=== PATIENT | male | born 1990 | race Hispanic/Latino ===

== ENCOUNTER 2022-12-13 17:20 | Emergency (ER) | payer OTHER, SELFPAY ==
--- NOTE | 2022-12-13 18:49 | PC.NURSE ---
Pt called twice to triage no answer
== END 2022-12-13 18:49 | disposition left against medical advice (07) ==
LOC: ANHED 19:13
DX: Z53.21 Procedure and treatment not carried out due to patient leaving prior to being seen by health care provider (principal)
CPT/HCPCS: 99199

== ENCOUNTER 2023-02-25 10:01 | Emergency (ER) | payer OTHER, SELFPAY ==
--- NOTE | ~2023-02-25 | XR_ITS ---
EXAMINATION: XR chest 2V DATE: 02/25/2023 10:50 INDICATION: Right shoulder pain TECHNIQUE: PA and lateral views of the chest are obtained. COMPARISON: None available FINDINGS: The lungs are free of acute opacities. No pleural effusion or pneumothorax. The cardiomedia stinal silhouette is normal. The visualized bones and soft tissues are unremarkable. IMPRESSION: 1. No acute cardiopulmonary abnormality. Reviewed, dictated and finalized at location F. RUMENT/CONTROL TECHNICIAN
[2023-02-25 10:23] VITALS: BP 145/82; PULSE 100; RESP 18; O2SAT 100
[2023-02-25 10:27] VITALS: O2SAT 100
--- NOTE | 2023-02-25 10:48 | ED.GENADULT ---
HPI - General Adult General Chief complaint: Unspecified Stated complaint: flu symptoms Time Seen by Provider: 02/25/23 10:21 History of Present Illness HPI narrative: 32-year-old male presented to the emergency department for evaluation of flu-like symptoms that have been ongoing for the past few days. Also complains some right shoulder pain that radiates down his right arm. 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 Patient denies any chest pain. Related Data Allergies Allergy/AdvReac Type Severity Reaction Status Date / Time No Known Allergies Allergy Verified 02/25/23 10:03 Review of Systems Review of Systems: All systems reviewed & are unremarkable except as noted in HPI and below Exam Narrative: APPEARANCE: Well appearing, no pain, no distress, well-nourished. HEAD: normocephalic, atraumatic. EYES: PERRLA/EOMI, conjunctivae clear. NOSE: Normal no drainage EARS:TMS clear with good light reflex. THROAT: Pharynx clear, no exudate. NECK: Supple. No adenopathy, no masses. RESPIRATORY: Airway patent, respirations nonlabored. Clear to auscultation bilaterally, no rales, rhonchi, wheezing. CARDIOVASCULAR: Regular rate and rhythm without murmurs rubs or gallops. ABDOMINAL: Soft, nontender, nondistended, normal bowel sounds MUSCULOSKELETAL: Posterior right-sided periscapular muscular tenderness to palpation. NEURO: Alert. Cranial nerves II through XII intact. Good gait. Good coordination SKIN: Warm, dry. Normal Color Course Course Emergency Course: 32-year-old male presents emerged department for evaluation of flu-like symptoms. Patient is also complaining of some right shoulder pain that has been going on for the last few weeks. Chest x-ray shows no acute cardiopulmonary abnormality. Patient's rectal pain is very muscular and reproducible with range of motion. Patient denies any chest pain or shortness of breath. Suspect musculoskeletal etiology low concern for pulmonary embolism. Patient did test positive for COVID. Patient and family written results of the workup. Vital Signs Vital signs: Vital Signs Pulse Rate 100 02/25/23 10:23 Respiratory Rate 18 02/25/23 10:23 Blood Pressure 145/82 H 02/25/23 10:23 Pulse Oximetry 100 02/25/23 10:23 Oxygen Delivery Room Air 02/25/23 10:23 Pulse Rate 100 02/25/23 10:23 Respiratory Rate 18 02/25/23 10:23 Blood Pressure 145/82 H 02/25/23 10:23 Pulse Oximetry 100 02/25/23 10:27 Oxygen Delivery Room Air 02/25/23 10:27 Medical Decision Making Differential Diagnosis Differential Diagnosis: Shoulder strain, muscular injury, influenza, RSV, COVID, pneumonia, pulmonary embolism Vital Signs Vital Signs: Vital Signs Pulse Rate 100 02/25/23 10:23 Respiratory Rate 18 02/25/23 10:23 Blood Pressure 145/82 H 02/25/23 10:23 Pulse Oximetry 100 02/25/23 10:23 Oxygen Delivery Room Air 02/25/23 10:23 Pulse Rate 100 02/25/23 10:23 Respiratory Rate 18 02/25/23 10:23 Blood Pressure 145/82 H 02/25/23 10:23 Pulse Oximetry 100 02/25/23 10:27 Oxygen Delivery Room Air 02/25/23 10:27 Lab Data Lab results reviewed: Yes I reviewed the patient's lab results. Labs: Lab Results 02/25/23 Range/Units 10:45 Influenza A (RT-PCR) Negative (Negative) Influenza B (RT-PCR) Negative (Negative) RSV (RT-PCR) Negative (Negative) SARS-CoV-2 RNA (RT-PCR) Positive A (Negative) Imaging Data Radiologist's impression: IMPRESSION: 1. No acute cardiopulmonary abnormality. Discharge Plan Discharge Clinical Impression: COVID, Right shoulder strain Patient Disposition: Home, Self-Care Condition: Stable Instructions: Antibiotic Form, Shoulder Pain (ED), COVID-19 (Coronavirus Disease 2019) (ED) Additional Instructions: Tylenol and ibuprofen for pain control and for fever control. COVID isolation as directed. Have close follow-up with he
[2023-02-25 11:27] LABS: Influenza A QL RT-PCR Negative (Negative); Influenza B QL RT-PCR Negative (Negative); RSV RNA, RT-PCR Negative (Negative); SARS-CoV-2 RNA PCR Positive (Negative)
== END 2023-02-25 12:03 | disposition home or self-care (01) ==
PROVIDERS: Emergency Provider Emergency Medicine
DX: U07.1 COVID-19 (principal); S46.911A Strain of unspecified muscle, fascia and tendon at shoulder and upper arm level, right arm, initial encounter; X50.0XXA Overexertion from strenuous movement or load, initial encounter
CPT/HCPCS: 71046; 87637; 99283

== ENCOUNTER 2024-05-15 09:29 | Outpatient (CLI) | payer OTHER, SELFPAY ==
--- NOTE | ~2024-05-15 | XR_ITS ---
EXAMINATION: XR abdomen/kub 1V DATE: 05/15/2024 09:45 INDICATION: Diarrhea, unspecified. TECHNIQUE: A supine view of the abdomen on 2 radiographs was obtained. COMPARISON: None. FINDINGS: There are no dilated loops of bowel. There is a moderate volume of stool in the colon. Calc ifications in the pelvis are likely phleboliths. IMPRESSION: 1. Normal bowel gas pattern. Reviewed, dictated and finalized at location A. O GAMES STORYWRITER
--- OUTSIDE RECORDS SUMMARY | 2024-05-15 10:23 | XMS_ITS | Clinical Summary ---
Author Organization [facility] Address [address] [place] [address] Phone Care Team Providers Care Dude Wrangler Name Role Phone Provider, None Primary Care Provider Unavailabl e Allergies No known active allergies Medications neomycin-polymy lisbet-dexamethaso ne (MAXITROL) [id number] 1 Drop in left eye 4 times daily. 5 mL 12/13/2022 Active methylPREDNISol one (MEDROL DOSPACK) 4 MG Tablet Therapy Pack See product package insert for dosing schedule 21 Tablet 12/13/2022 Active Encounters Date Type Department Care Team Description 04/08/2024 Nurse Triage [facility] [address] [place] [address] Provider, None Dizziness from Last 3 Months Social History Tobacco Use Types Packs/Day Years Used Date Smoking Tobacco: Never Assessed Sex and Gender Information Value Date Recorded Sex Assigned at Not on file Legal Sex Male 6:00 PM CDT Gender Identity Not on file Sexual Orientation Not on file Last Filed Vital Signs Vital Sign Reading Time Taken Comments Blood Pressure 135/82 12/13/2022 6:41 PM CDT Pulse 80 12/13/2022 6:41 PM CDT Simultaneous filing. User may not have seen previous data. Temperature 36.3 C (97.4 F) 12/13/2022 6:41 PM CDT Respiratory Rate 20 12/13/2022 6:41 PM CDT Simultaneous filing. User may not have seen previous data. Oxygen Saturation 98% 12/13/2022 6:4 1 PM CDT Simultaneous filing. User may not have seen previous data. Inhaled Oxygen Concentration - - Weight 74.4 kg (164 lb) 12/13/2022 6:41 PM CDT Height 180.3 cm (5' 11 ) 12/13/2022 6:4 1 PM CDT Body Mass Index 22.87 12/13/2022 6:41 PM CDT Plan of Treatment Not on file [place] [address] MEDICAID [employer] Care Teams Dude Wrangler Relationship Specialty Start Date End Date Provider, None [place] PCP - General 12/13/22
--- OUTSIDE RECORDS SUMMARY | 2024-05-15 10:23 | XMS_ITS | Referral Summary ---
Author Organization [facility] Address [address] [place] [address] Care Team Providers Care Environmental Assistant Name Role Phone No, Physician Primary Care Provider [phone] Encounters Date Type Department Care Team Description 04/08/2024 6:53 PM CLINICAL CARE COORDINATOR - 04/09/2024 12:02 AM CLINICAL CARE COORDINATOR Emergency [facility] Emergency Department [address] [place] [address] Mariana Massey MD [place], Lyndon Rubin MD Vertigo (Primary Dx); Nausea and vomiting, unspecified vomiting type; Right otitis media, unspecified otitis media type Discharge Disposition: Discharge to home or self care from Last 3 Months Allergies No known active allergies Medications meclizine (ANTIVERT) 25 mg tablet Take 1 tablet (25 mg total) by mouth 3 (three) times a day as needed for dizziness 30 tablet 5 Active LORazepam (Ativan) 1 mg tabletIndicatio ns:Akathisia,In somnia,anxiety, vertigo Take 1 tablet (1 mg total) by mouth 3 (three) times a day as needed for anxiety (vertigo and nausea) 15 tablet 5 Active sulfamethoxazol e-trimethoprim (BACTRIM DS) 800-160 mg per tablet Take 1 tablet by mouth 2 (two) times a day for 7 days smx-tmp DS (BACTRIM) 800-160 mg tabs 14 tablet 5 04/15/19 25 Social History Tobacco Use Types Packs/Day Years Used Date Smoking Tobacco: Never Assessed Personal Safety Answer Date Recorded Have you ever been in or are you currently in a harmful physical or emotional relationship or is someone making you feel afraid or unsafe? Denies 04/08/2024 Sex and Gender Information Value Date Recorded Sex Assigned at Not on file Legal Sex Male 6:40 PM CLINICAL CARE COORDINATOR Gender Identity Not on file Sexual Orientation Not on file Last Filed Vital Signs Vital Sign Reading Time Taken Comments Blood Pressure 114/72 04/08/2024 7:30 PM CLINICAL CARE COORDINATOR Pulse 66 04/08/2024 7:30 PM CLINICAL CARE COORDINATOR Temperature 36.9 C (98.4 F) 04/08/2024 6:52 PM CLINICAL CARE COORDINATOR Respiratory Rate 18 04/08/2024 6:52 PM CLINICAL CARE COORDINATOR Oxygen Saturation 97% 04/08/2024 7:30 PM CLINICAL CARE COORDINATOR Inhaled Oxygen Concentration - - Weight 86.2 kg (190 lb) 04/08/2024 6:52 PM CLINICAL CARE COORDINATOR Height 180.3 cm (5' 11 ) 04/08/2024 6:52 PM CLINICAL CARE COORDINATOR Body Mass Index 26.5 04/08/2024 6:52 PM CLINICAL CARE COORDINATOR Plan of Treatment Not on file Procedures Procedure Name Priority Date/Time Associated Diagnosis Comments CT HEAD WO CONTRAST ED 04/08/2024 1 1:30 PM CLINICAL CARE COORDINATOR XR KUB ED 04/08/2024 9:02 PM CLINICAL CARE COORDINATOR EGFR STAT 04/08/2024 7:26 PM CLINICAL CARE COORDINATOR DIFFERENTIAL AUTO STAT 04/08/2024 7:2 6 PM CLINICAL CARE COORDINATOR CRP (ACUTE PHASE) STAT 04/08/2024 7:2 6 PM CLINICAL CARE COORDINATOR LIPASE STAT 04/08/2024 7:26 PM CLINICAL CARE COORDINATOR COMPREHENSIVE METABOLIC PANEL STAT 04/08/2024 7:26 PM CLINICAL CARE COORDINATOR CBC WITH AUTO DIFFERENTIAL STAT 04/08/2024 7:26 PM CLINICAL CARE COORDINATOR from Last 3 Months Results * CT Head WO Contrast (04/08/2024 11:30 PM CLINICAL CARE COORDINATOR) Anatomical Region Laterality Modality Head and Neck N/A Computed Tomogra phy 04/08/2024 11:3 4 PM CLINICAL CARE COORDINATOR Narrative 04/08/2024 11:37 PM CLINICAL CARE COORDINATOR EXAM DESCRIPTION: CT HEAD WO CONTRAST REASON FOR STUDY: Headache, no red flags Pt ambulatory to triage with c/o dizziness that started 2 days ago and vomiting that started today. No pertinent medical hx to explain symptoms No hx of stroke No hx of fx No surgery TECHNIQUE: Axial images acquired through the brain without intravenous contrast. Images stored on PACS. Automated exposure control was used as a dose optimization technique for this examination. COMPARISON: None FINDINGS: BRAIN: No hemorrhage, edema or mass effect. No recent infarct. Normal white matter. EXTRA-AXIAL SPACES: No fluid collections. No masses. CALVARIUM: No fracture. SINUSES/MASTOIDS: No fluid or mucosal thickening. ORBITS: No significant abnormality. OTHER: No other significant abnormality. IMPRESSION: No acute intracranial findings. THIS IS AN ELECTRONICALLY VERIFIED FINAL REPORT 04/08/2024 11:37 PM - Electronically signed by Jean-Claude Nath M.D. KH: SAMANTHA Report ID: [id number] Reading Location: [id number] Procedure Note Jean-Claude Nath MD - 04/08/2024 EXAM DESCRIPTION: CT HEAD WO CONTRAST REASON FOR STUDY: Headache, no red flags Pt ambulatory to triage with c/o dizziness that started 2 days ago and vomiting that started today. No pertinent medical hx to explain symptomsNo hx of stroke No hx of fx No surgery TECHNIQUE: Axial images acquired through the brain without intravenous contrast. Images stored on PACS. Automated exposure control was used asa dose optimization technique for this examination. COMPARISON: None FINDINGS: BRAIN: No hemorrhage, edema or mass effect. No recent infarct. Normal white matter. EXTRA-AXIAL SPACES: No fluid collections. No masses. CALVARIUM: No fracture. SINUSES/MASTOIDS: No fluid or mucosal thickening. ORBITS: No significant abnormality. OTHER: No other significant abnormality. IMPRESSION: No acute intracranial findings. THIS IS AN ELECTRONICALLY VERIFIED FINAL REPORT 04/08/2024 11:37 PM - Electronically signed by Jean-Claude Nath M.D. KH: SAMANTHA Report ID: [id number] Reading Location: [id number] Lyndon Munoz MD IMG CT PROCEDURES Final Res ult * XR Kub (Abd 1 View) (04/08/2024 9:02 PM CLINICAL CARE COORDINATOR) Anatomical Region Laterality Modality Body, Abdomen N/A Computed Radiogr aphy 04/08/2024 9:16 PM CLINICAL CARE COORDINATOR Narrative 04/08/2024 9:17 PM CLINICAL CARE COORDINATOR EXAM DESCRIPTION: XR KUB REASON FOR STUDY: Abd pain, unspecified Acute onset of Diarrhea about 2 Days ago followed by a mild left earache and now he has intense vertigo dizziness on standing. Pt says he has Vomiting as well. It is much improved with his eyes closed or standing still. He describes his purely a horizontal rotational dizziness and fine as long as he is still. No Hx of Abdomen Surgery. TECHNIQUE: KUB COMPARISON: None FINDINGS: BOWEL: Nonobstructive gas pattern. OTHER SOFT TISSUES: Unremarkable. BONES: Unremarkable. IMPRESSION: No bowel obstruction or other acute abnormality identified. THIS IS AN ELECTRONICALLY VERIFIED FINAL REPORT 04/08/2024 9:17 PM - Electronically signed by Markos Sweet M.D. AR: LAURENCE Report ID: [id number] Reading Location: [id number] Procedure Note Markos Sweet MD - 04/08/2024 EXAM DESCRIPTION: XR KUB REASON FOR STUDY: Abd pain, unspecified Acute onset of Diarrhea about 2 Days ago followed by a mild left earacheand now he has intense vertigo dizziness on standing. Pt says he has Vomitingas well. It is much improved with his eyes closed or standing still. He describes his purely a horizontal rotational dizziness and fine as long felix is still. No Hx of Abdomen Surgery. TECHNIQUE: KUB COMPARISON: None FINDINGS: BOWEL: Nonobstructive gas pattern. OTHER SOFT TISSUES: Unremarkable. BONES: Unremarkable. IMPRESSION: No bowel obstruction or other acute abnormality identified. THIS IS AN ELECTRONICALLY VERIFIED FINAL REPORT 04/08/2024 9:17 PM - Electronically signed by Markos Sweet M.D. AR: LAURENCE Report ID: [id number] Reading Location: [place] [id number] Lyndon Munoz MD IMG XR PROCEDURES Final Res ult * eGFR (04/08/2024 7:26 PM CLINICAL CARE COORDINATOR) eGFR >90 >=60 mL/min/1. 73 m2 Comment: Interpretive Data Reference Interval Normal >/= 90 mL/min/1.73m2 Mildly decreased* 60 - 89 mL/min/1.73m2 Mildly to moderately decreased 45 - 59 mL/min/1.73m2 Moderately to severely decreased 30 - 44 mL/min/1.73m2 Severely decreased 15 - 29 mL/min/1.73m2 Kidney Failure < 15 mL/min/1.73m2 *Relative to young adult level Estimated glomerular filtration rate is determined by the 2020 CKD-EPI equation recommended by the National Kidney Foundation (A Unifying Approach to GFR Estimation: Recommendations of the NKF-ASK Task Force on Reassessing the Inclusion of Race in Diagnosing Kidney Disease, JASN 2020). The CKD-EPI equation should not be used for patients with unstable renal function and has not been validated in children and those over 70. Current interpretive data was last reviewed 2021. Blood 04/08/2024 7:26 PM CLINICAL CARE COORDINATOR 04/08/2024 7:29 PM CLINICAL CARE COORDINATOR Lyndon Munoz MD LAB BLOOD ORDERABLES Final Result [facility] [place]) 1 [facility] Department [place] [address] * (ABNORMAL) Differential, auto (04/08/2024 7:26 PM CLINICAL CARE COORDINATOR) Neutrophil abs 7.4(H) 1.5 - 6.5 K/cumm Imm gran abs 0.0 0.0 - 0.1 K/cumm [facility] ([place]) Lymphocyte abs 1.8 0.8 - 3.3 K/cumm [facility] ([facility]) Monocyte abs 0.6 0.2 - 0.8 K/cumm [facility] ([place]) Eosinophil abs 0.1 0.0 - 0.5 K/cumm [facility] ([place]) Basophil abs 0.0 0.0 - 0.1 K/cumm [facility] ([place]) Neutrophil pct 74.0 % [facility] ([facility]) Comment: Interpretive Data Percent cell count reference ranges are not reported, since discordance with absolute values may lead to misinterpretation of CBC data. Current Interpretive Data was last revised on 2017. Imm gran pct 0.2 % [facility] ([place]) Comment: Interpretive Data Percent cell count reference ranges are not reported, since discordance with absolute values may lead to misinterpretation of CBC data. Current Interpretive Data was last revised on 2017. Lymphocyte pct 18.3 % [facility] ([place]) Comment: Interpretive Data Percent cell count reference ranges are not reported, since discordance with absolute values may lead to misinterpretation of CBC data. Current Interpretive Data was last revised on 2017. Monocyte pct 6.3 % [facility]) Comment: Interpretive Data Percent cell count reference ranges are not reported, since discordance with absolute values may lead to misinterpretation of CBC data. Current Interpretive Data was last revised on 2017. Eosinophil pct 0.8 % [facility] ([place]) Comment: Interpretive Data Percent cell count reference ranges are not reported, since discordance with absolute values may lead to misinterpretation of CBC data. Current Interpretive Data was last revised on 2017. Basophil pct 0.4 % [facility] ([facility]) Comment: Interpretive Data Percent cell count reference ranges are not reported, since discordance with absolute values may lead to misinterpretation of CBC data. Current Interpretive Data was last revised on 2017. Blood 04/08/2024 7:26 PM CLINICAL CARE COORDINATOR 04/08/2024 7:29 PM CLINICAL CARE COORDINATOR Lyndon Munoz MD LAB BLOOD ORDERABLES Final Result [facility] ([place] 1 [facility] [place] [address] * (ABNORMAL) CBC with auto differential (04/08/2024 7:26 PM CLINICAL CARE COORDINATOR) WBC 10.0(H) 3.8 - 9.9 K/cumm Hgb 15.8 13.0 - 17.5 g/dL [facility] ([place]) Hct 45.7 38.9 - 50.3 % [facility] ([place]) Plt 244 150 - 400 K/cumm [facility] ([place]) MPV 10.3 9.1 - 12.3 fL [facility]) RBC 4.96 4.30 - 5.80 M/cumm [facility] ([place]) MCV 92.1 81.3 - 96.4 fL [facility]) MCH 31.9 27.1 - 33.3 pg [facility]) MCHC 34.6 32.3 - 35.7 g/dL [facility] ([place]) RDW CV 11.9 11.1 - 14.9 % [facility]) RDW SD 40.6 35.7 - 48.1 fL [facility] ([place]) NRBC abs 0.00 0.00 - 0.01 K/cumm [facility] ([facility]) Blood 04/08/2024 7:26 PM CLINICAL CARE COORDINATOR 04/08/2024 7:29 PM CLINICAL CARE COORDINATOR Lyndon Munoz MD LAB BLOOD ORDERABLES Final Result [facility] ([place]) 1 [facility] [employer] [place] [address] * CRP (acute phase) (04/08/2024 7:26 PM CLINICAL CARE COORDINATOR) CRP <3.0 <=10.0 mg/L Blood 04/08/2024 7:26 PM CLINICAL CARE COORDINATOR 04/08/2024 7:29 PM CLINICAL CARE COORDINATOR Lyndon Munoz MD LAB BLOOD ORDERABLES Final Result [facility] ([place]) [address] [place] [address] * Lipase (04/08/2024 7:26 PM CLINICAL CARE COORDINATOR) Lipase 13 10 - 99 Units/L Blood 04/08/2024 7:26 PM CLINICAL CARE COORDINATOR 04/08/2024 7:29 PM CLINICAL CARE COORDINATOR Lyndon Munoz MD LAB BLOOD ORDERABLES Final Result Performing Organization Address [facility] de Phone Number [facility] ([place]) [address] [place] [address] * Comprehensive metabolic panel (04/08/2024 7:26 PM CLINICAL CARE COORDINATOR) Sodium 138 135 - 145 mmol/L Potassium, pl 4.3 3.3 - 4.9 mmol/L [facility] ([place]) Chloride 101 97 - 110 mmol/L [facility]) CO2 27 22 - 32 mmol/L [facility]) Anion gap 10 2 - 15 mmol/L [facility] ([place]) BUN 10 6 - 25 mg/dL [facility] ([place]) Creatinine 0.96 0.80 - 1.30 mg/dL [facility]) Glucose 97 70 - 199 mg/dL [facility] ([place]) Comment: Interpretive Data Fasting glucose >/= 126 mg/dl is diagnostic for diabetes. Fasting is defined as no caloric intake for at least 8 hours. Fasting glucose between 100 mg/dl to 125 mg/dl is diagnostic of prediabetes. In a patient with classic symptoms of hyperglycemia or hyperglycemic crisis, a random glucose >/= 200 mg/dl is diagnostic for diabetes. In the absence of unequivocal hyperglycemia, results should be confirmed by repeat testing. The classification and Diagnosis of Diabetes Diabetes Care 2021; 46: S19-S40. Current interpretive data was last revised 2022. Calcium 9.5 8.5 - 10.3 mg/dL [facility] ([place]) Bilirubin, total 0.7 0.1 - 1.2 mg/dL [facility] ([place]) Protein, pl 7.8 6.5 - 8.5 g/dL [facility] ([place]) Albumin 4.5 3.5 - 5.0 g/dL [facility] ([place]) Alk phos 89 40 - 130 Units/L [facility] ([place]) ALT 16 7 - 55 Units/L [facility] ([place]) AST 20 10 - 50 Units/L [facility] ([place]) Blood 04/08/2024 7:26 PM CLINICAL CARE COORDINATOR 04/08/2024 7:29 PM CLINICAL CARE COORDINATOR Lyndon Munoz MD LAB BLOOD ORDERABLES Final Result [facility] ([place]) 1 [facility] [place] [address] from Last [address] [place] [address] [employer] Care Teams Environmental Assistant Relationship Specialty Start Date End Date No, Physician PCP - General 04/08/24
--- OUTSIDE RECORDS SUMMARY | 2024-05-15 10:23 | XMS_ITS | Clinical Summary ---
Author Organization [facility] Address [address] [place] [address] Care Team Providers Care Lumber Buyer Name Role Phone No, Physician Primary Care Provider [phone] Allergies No known active allergies Medications meclizine [...] mg tabs 14 tablet 5 04/15/19 25 Encounters Date Type Department Care Team Description 04/08/2024 6:53 PM ALGOLOGY TEACHER - 04/09/2024 12:02 AM ALGOLOGY TEACHER Emergency [facility] Emergency Department [address] [place] [address] Mariana Massey MD Burnside, David W., MD Vertigo (Primary Dx); Nausea and vomiting, unspecified vomiting type; Right otitis media, unspecified otitis media type Discharge Disposition: Discharge to home or self care from Last 3 Months Social History Tobacco [...] on file Legal Sex Male 6:40 PM ALGOLOGY TEACHER Gender Identity Not on file Sexual Orientation Not on file Last Filed Vital Signs Vital Sign Reading Time Taken Comments Blood Pressure 114/72 04/08/2024 7:30 PM ALGOLOGY TEACHER Pulse 66 04/08/2024 7:30 PM ALGOLOGY TEACHER Temperature 36.9 C (98.4 F) 04/08/2024 6:52 PM ALGOLOGY TEACHER Respiratory Rate 18 04/08/2024 6:52 PM ALGOLOGY TEACHER Oxygen Saturation 97% 04/08/2024 7:30 PM ALGOLOGY TEACHER Inhaled Oxygen Concentration - - Weight 86.2 kg (190 lb) 04/08/2024 6:52 PM ALGOLOGY TEACHER Height 180.3 cm (5' 11 ) 04/08/2024 6:52 PM ALGOLOGY TEACHER Body Mass Index 26.5 04/08/2024 6:52 PM ALGOLOGY TEACHER Plan of Treatment Health Maintenance Due Date Last Done Comments Depression Screening 1990 Hepatitis C Screening 1990 DTaP/Tdap/Td Vaccine (1 - Tdap) 2001 Varicella Vaccines (1 of 2 - 13+ 2-dose series) 2003 Hepatitis B Screening 2008 Regular Well Visit/Exam 18-64 2008 Influenza Vaccine (#1) 2023 HPV Vaccines Aged Out No longer eligi ble based on patient's age to complete this topic Pneumococcal vaccine <65 Aged Out No longer eligible based on patient's age to complete this topic Procedures Procedure Name Priority Date/Time Associated Diagnosis Comments CT HEAD WO CONTRAST ED 04/08/2024 1 1:30 PM ALGOLOGY TEACHER XR KUB ED 04/08/2024 9:02 PM ALGOLOGY TEACHER EGFR STAT 04/08/2024 7:26 PM ALGOLOGY TEACHER DIFFERENTIAL AUTO STAT 04/08/2024 7:2 6 PM ALGOLOGY TEACHER CRP (ACUTE PHASE) STAT 04/08/2024 7:2 6 PM ALGOLOGY TEACHER LIPASE STAT 04/08/2024 7:26 PM ALGOLOGY TEACHER COMPREHENSIVE METABOLIC PANEL STAT 04/08/2024 7:26 PM ALGOLOGY TEACHER CBC WITH AUTO DIFFERENTIAL STAT 04/08/2024 7:26 PM ALGOLOGY TEACHER from Last 3 Months Results * CT Head WO Contrast (04/08/2024 11:30 PM ALGOLOGY TEACHER) Anatomical Region Laterality Modality Head and Neck N/A Computed Tomogra phy 04/08/2024 11:3 4 PM ALGOLOGY TEACHER Narrative 04/08/2024 11:37 PM ALGOLOGY TEACHER EXAM DESCRIPTION: CT HEAD WO CONTRAST REASON [...] Jean-Claude Nath M.D. KH: SAMANTHA Report ID: [id number] Reading Location: [id number] Procedure Note Jean-Claude Nath MD - 04/08/2024 [...] Jean-Claude Nath M.D. KH: SAMANTHA Report ID: [id number] Reading Location: [id number] Lyndon Munoz MD IMG CT PROCEDURES Final Res ult * XR Kub (Abd 1 View) (04/08/2024 9:02 PM ALGOLOGY TEACHER) Anatomical Region Laterality Modality Body, Abdomen N/A Computed Radiogr aphy 04/08/2024 9:16 PM ALGOLOGY TEACHER Narrative 04/08/2024 9:17 PM ALGOLOGY TEACHER EXAM DESCRIPTION: XR KUB REASON FOR STUDY: [...] Markos Sweet M.D. AR: LAURENCE Report ID: [id number] Reading Location: [id number] Procedure Note Markos Sweet MD - 04/08/2024 [...] Markos Sweet M.D. AR: LAURENCE Report ID: [id number] Reading Location: [id number] Lyndon Munoz MD IMG XR PROCEDURES Final Res ult * eGFR (04/08/2024 7:26 PM ALGOLOGY TEACHER) eGFR >90 >=60 mL/min/1. 73 m2 Comment: [...] last reviewed 2021. Blood 04/08/2024 7:26 PM ALGOLOGY TEACHER 04/08/2024 7:29 PM ALGOLOGY TEACHER us Lyndon Munoz MD LAB BLOOD ORDERABLES Final Result [facility] ([place]) 1 [facility] Department [place] [address] * (ABNORMAL) Differential, auto (04/08/2024 7:26 PM ALGOLOGY TEACHER) Neutrophil abs 7.4(H) 1.5 - 6.5 K/cumm Imm gran abs 0.0 0.0 - 0.1 K/cumm [facility] ([place]) Lymphocyte abs 1.8 0.8 - 3.3 K/cumm [facility] ([place]) Monocyte abs 0.6 0.2 - 0.8 K/cumm [facility] ([place]) Eosinophil abs 0.1 0.0 - 0.5 K/cumm [facility] ([place]) Basophil abs 0.0 0.0 - 0.1 K/cumm [facility] ([place]) Neutrophil pct 74.0 % [facility] ([place]) Comment: Interpretive Data Percent cell count reference [...] revised on 2017. Blood 04/08/2024 7:26 PM ALGOLOGY TEACHER 04/08/2024 7:29 PM ALGOLOGY TEACHER us Lyndon Munoz MD LAB BLOOD ORDERABLES Final Result [facility] ([place]) 1 [facility] Department [place] [address] * (ABNORMAL) CBC with auto differential (04/08/2024 7:26 PM ALGOLOGY TEACHER) WBC 10.0(H) 3.8 - 9.9 K/cumm Hgb [...] [facility] ([place]) Blood 04/08/2024 7:26 PM ALGOLOGY TEACHER 04/08/2024 7:29 PM ALGOLOGY TEACHER Lyndon Munoz MD LAB BLOOD ORDERABLES Final Result [facility] ([place]) 1 [facility] [place] [address] * CRP (acute phase) (04/08/2024 7:26 PM ALGOLOGY TEACHER) CRP <3.0 <=10.0 mg/L Blood 04/08/2024 7:26 PM ALGOLOGY TEACHER 04/08/2024 7:29 PM ALGOLOGY TEACHER Lyndon Munoz MD LAB BLOOD ORDERABLES Final Result Performing Organization Address [facility] Co de Phone Number [facility] ([place]) [address] [place] [address] * Lipase (04/08/2024 7:26 PM ALGOLOGY TEACHER) Pathologist [facility] Lipase 13 10 - 99 Units/L Blood 04/08/2024 7:26 PM ALGOLOGY TEACHER 04/08/2024 7:29 PM ALGOLOGY TEACHER Lyndon Munoz MD LAB BLOOD ORDERABLES Final Result Performing Organization Address [facility] Co de Phone Number [facility] ([place]) [address] [place] [address] * Comprehensive metabolic panel (04/08/2024 7:26 PM ALGOLOGY TEACHER) Sodium 138 135 - 145 mmol/L Potassium, pl 4.3 3.3 - 4.9 mmol/L [facility] ([place]) Chloride 101 97 - 110 mmol/L [facility] ([place]) CO2 27 22 - 32 mmol/L [facility] ([place]) Anion gap 10 2 - 15 mmol/L [facility] ([place]) BUN 10 6 - 25 mg/dL [facility] ([place]) Creatinine 0.96 0.80 - 1.30 mg/dL [facility] ([place]) Glucose 97 70 - 199 mg/dL [facility] ([place]) Comment: Interpretive Data Fasting glucose >/= [...] classification and Diagnosis of Diabetes Diabetes Care 202; 46: S19-S40. Current interpretive data was last [...] [facility] ([place]) Blood 04/08/2024 7:26 PM ALGOLOGY TEACHER 04/08/2024 7:29 PM ALGOLOGY TEACHER us Lyndon Munoz MD LAB BLOOD ORDERABLES Final Result [facility] ([place]) 1 [facility] [place] [address] from Last [address] [place] [address] MARGI Care Teams Lumber Buyer Relationship Specialty Start Date End Date No, Physician PCP - General 04/08/24
== END 2024-05-15 09:30 | disposition home or self-care (01) ==
LOC: ANHBWCIMG 09:32
PROVIDERS: PCP Nurse Practitioner Adult Health; Visit Provider Nurse Practitioner Adult Health
DX: R19.7 Diarrhea, unspecified (principal)
CPT/HCPCS: 74018

== ENCOUNTER 2024-05-27 14:21 | Emergency (ER) | payer OTHER, SELFPAY ==
--- NOTE | ~2024-05-27 | CT_ITS ---
History: Right-sided neck pain with digital paresthesias PROCEDURE: CT cervical spine without intravenous contrast. COMPARISON: None TECHNIQUE: Multiple contiguous axial images of the cervical spine were performed without the administration of i ntravenous contrast. DLP: 464 mGy-cm FINDINGS: Straightening and slight reversal of the normal curvature of the cervical spine is identified, likely muscular in origin. No acute fractures are present. The bilateral lung apices are unremarkable. No soft tissue abnormality is present. The airway is patent. Nonpathologically enlarged lymph nodes within the bilateral cervical chains and lower neck, a nonspec ific finding. Impression: Straightening and slight reversal of the normal curvature of the cervical spine, likely muscular in o rigin. No acute fracture. Reviewed, dictated and finalized at location A. DOM OF INFORMATION OFFICER Impression: Straightening and slight reversal of the normal curvature of the cervical spine , likely muscular in origin. No acute fracture.
--- OUTSIDE RECORDS SUMMARY | 2024-05-27 14:23 | XMS_ITS | Referral Summary ---
Author Organization [facility] Address [address] [place] [address] Care Team Providers Care Patient Services Technician Name Role Phone No, Physician Primary Care Provider [phone] Encounters Date Type Department Care Team Description 04/08/2024 6:53 PM REINSURANCE CLERK - 04/09/2024 12:02 AM [facility] Emergency [facility] Emergency Department [address] [place] [address] Mariana Massey MD Burnside, Lyndon Rubin MD [...] day as needed for dizziness 30 tablet Active LORazepam (Ativan) 1 mg tabletIndicatio ns:Akathisia,In somnia,anxiety, vertigo Take 1 tablet (1 mg total) by mouth 3 (three) times a day as needed for anxiety (vertigo and nausea) 15 tablet 5 Active Social History Tobacco Use Types Packs/Day Years Used Date Smoking Tobacco: Never Assessed Personal Safety Answer Date Recorded Have you ever been in or are you currently in a harmful physical or emotional relationship or is someone making you feel afraid or unsafe? Denies 04/08/2024 Sex and Gender Information Value Date Recorded Sex Assigned at Not on file Legal Sex Male 6:40 PM REINSURANCE CLERK Gender Identity Not on file Sexual Orientation Not on file Last Filed Vital Signs Vital Sign Reading Time Taken Comments Blood Pressure 114/72 04/08/2024 7:30 PM REINSURANCE CLERK Pulse 66 04/08/2024 7:30 PM REINSURANCE CLERK Temperature 36.9 C (98.4 F) 04/08/2024 6:52 PM REINSURANCE CLERK Respiratory Rate 18 04/08/2024 6:52 PM REINSURANCE CLERK Oxygen Saturation 97% 04/08/2024 7:30 PM REINSURANCE CLERK Inhaled Oxygen Concentration - - Weight 86.2 kg (190 lb) 04/08/2024 6:52 PM REINSURANCE CLERK Height 180.3 cm (5' 11 ) 04/08/2024 6:52 PM REINSURANCE CLERK Body Mass Index 26.5 04/08/2024 6:52 PM REINSURANCE CLERK Plan of Treatment Not on file Procedures Procedure Name Priority Date/Time Associated Diagnosis Comments CT HEAD WO CONTRAST ED 04/08/2024 1 1:30 PM REINSURANCE CLERK XR KUB ED 04/08/2024 9:02 PM REINSURANCE CLERK EGFR STAT 04/08/2024 7:26 PM REINSURANCE CLERK DIFFERENTIAL AUTO STAT 04/08/2024 7:2 6 PM REINSURANCE CLERK CRP (ACUTE PHASE) STAT 04/08/2024 7:2 6 PM REINSURANCE CLERK LIPASE STAT 04/08/2024 7:26 PM REINSURANCE CLERK COMPREHENSIVE METABOLIC PANEL STAT 04/08/2024 7:26 PM REINSURANCE CLERK CBC WITH AUTO DIFFERENTIAL STAT 04/08/2024 7:26 PM REINSURANCE CLERK from Last 3 Months Results * CT Head WO Contrast (04/08/2024 11:30 PM REINSURANCE CLERK) Anatomical Region Laterality Modality Head and Neck N/A Computed Tomogra phy 04/08/2024 11:3 4 PM REINSURANCE CLERK Narrative 04/08/2024 11:37 PM REINSURANCE CLERK EXAM DESCRIPTION: CT HEAD WO CONTRAST REASON [...] 11:37 PM - Electronically signed by Jean-Claude SINGH: SAMANTHA Report ID: [id number] Reading Location: [id number] Procedure Note Jean-Claude Nath MD - 04/08/2024 [...] 11:37 PM - Electronically signed by Jean-Claude SINGH: SAMANTHA Report ID: [id number] Reading Location: [id number] us Lyndon Munoz MD IMG CT PROCEDURES Final Res ult * XR Kub (Abd 1 View) (04/08/2024 9:02 PM REINSURANCE CLERK) Anatomical Region Laterality Modality Body, Abdomen N/A Computed Radiogr aphy 04/08/2024 9:16 PM REINSURANCE CLERK Narrative 04/08/2024 9:17 PM REINSURANCE CLERK EXAM DESCRIPTION: XR KUB REASON FOR STUDY: [...] Markos Sweet M.D. AR: LAURENCE Report ID: [id number] Reading Location: [id number] Procedure Note Markos Sweet MD - 04/08/2024 [...] Electronically signed by Markos Sweet M.D. AR: AR Report ID: [id number] Reading Location: [id number] Lyndon Munoz MD IMG XR PROCEDURES Final Res ult * eGFR (04/08/2024 7:26 PM REINSURANCE CLERK) eGFR >90 >=60 mL/min/1. 73 m2 Comment: [...] last reviewed 2021. Blood 04/08/2024 7:26 PM REINSURANCE CLERK 04/08/2024 7:29 PM REINSURANCE CLERK Lyndon Munoz MD LAB BLOOD ORDERABLES Final Result [facility] ([place]) 1 [facility] Department of Laboratories [place], [place] [id number] * (ABNORMAL) Differential, auto (04/08/2024 7:26 PM REINSURANCE CLERK) Neutrophil abs 7.4(H) 1.5 - 6.5 K/cumm Imm gran abs 0.0 0.0 - 0.1 K/cumm [facility] ([place]) Lymphocyte abs 1.8 0.8 - 3.3 K/cumm [facility] ([place]) Monocyte abs 0.6 0.2 - 0.8 K/cumm [...] revised on 2017. Blood 04/08/2024 7:26 PM REINSURANCE CLERK 04/08/2024 7:29 PM REINSURANCE CLERK us Lyndon Munoz MD LAB BLOOD ORDERABLES Final Result [facility] ([place]) 1 [facility] Department [place] [address] * (ABNORMAL) CBC with auto differential (04/08/2024 7:26 PM REINSURANCE CLERK) WBC 10.0(H) 3.8 - 9.9 K/cumm Hgb [...] [facility] ([place]) Blood 04/08/2024 7:26 PM REINSURANCE CLERK 04/08/2024 7:29 PM REINSURANCE CLERK us Lyndon Munoz MD LAB BLOOD ORDERABLES Final Result [facility] ([place]) 1 [facility] [place] [address] * CRP (acute phase) (04/08/2024 7:26 PM REINSURANCE CLERK) CRP <3.0 <=10.0 mg/L Blood 04/08/2024 7:26 PM REINSURANCE CLERK 04/08/2024 7:29 PM REINSURANCE CLERK Lyndon Munoz MD LAB BLOOD ORDERABLES Final Result [facility] ([place]) 1 [facility] [place] [address] * Lipase (04/08/2024 7:26 PM REINSURANCE CLERK) Lipase 13 10 - 99 Units/L Blood 04/08/2024 7:26 PM REINSURANCE CLERK 04/08/2024 7:29 PM REINSURANCE CLERK Lyndon Munoz MD LAB BLOOD ORDERABLES Final Result [facility] ([place]) 1 [facility] Department [place] [address] * Comprehensive metabolic panel (04/08/2024 7:26 PM REINSURANCE CLERK) Sodium 138 135 - 145 mmol/L Potassium, pl 4.3 3.3 - 4.9 mmol/L [facility] ([place]) Chloride 101 97 - 110 mmol/L [facility] ([place]) CO2 27 22 - 32 mmol/L [facility] ([place]) Anion gap 10 2 - 15 mmol/L [facility] ([place]) BUN 10 6 - 25 mg/dL [facility]) Creatinine 0.96 0.80 - 1.30 mg/dL [facility] ([place]) Glucose 97 70 - 199 [...] [facility] ([place]) Blood 04/08/2024 7:26 PM REINSURANCE CLERK 04/08/2024 7:29 PM REINSURANCE CLERK us Lyndon Munoz MD LAB BLOOD ORDERABLES Final Result [facility] ([place]) 1 [facility] Department of Laboratories [place], [place] [id number] from Last 3 [place] [address] [facility] Care Teams Patient Services Technician Relationship Specialty Start Date End Date No, Physician PCP - General 04/08/24
--- OUTSIDE RECORDS SUMMARY | 2024-05-27 14:23 | XMS_ITS | Clinical Summary ---
Author Organization [facility] Address [address] [place] [address] Phone Care Team Providers Care Laundry Routeman Name Role Phone Provider, None Primary Care Provider Unavailabl e Allergies No known active allergies Medications neomycin-polymy lisbet-dexamethaso ne (MAXITROL) [id number] 1 Drop in left eye 4 times daily. 5 mL 12/13/2022 Active methylPREDNISol one (MEDROL DOSPACK) 4 MG Tablet Therapy Pack See product package insert for dosing schedule 21 Tablet 12/13/2022 Active Encounters Date Type Department Care Team Description 04/08/2024 Nurse Triage [facility] [address] [place] [address] Provider, None Dizziness from Last [...] Treatment Not on file [place] [address] MEDICAID [employer] Care Teams Laundry Routeman Relationship Specialty Start Date End Date Provider, None NE PCP - General 12/13/22
--- OUTSIDE RECORDS SUMMARY | 2024-05-27 14:23 | XMS_ITS | Clinical Summary ---
Author Organization [facility] Address [address] [place] [address] Care Team Providers Care Inpatient Pharmacist Name Role Phone No, Physician Primary Care Provider [phone] Allergies No known active allergies Medications meclizine [...] (vertigo and nausea) 15 tablet 5 Active Encounters Date Type Department Care Team Description 04/08/2024 6:53 PM FLOOR COVERING INSTALLER - 04/09/2024 12:02 AM [facility] Emergency [facility] Emergency Department [address] [place] [address] Mariana Massey MD Burnside, David W., MD [...] on file Legal Sex Male 6:40 PM FLOOR COVERING INSTALLER Gender Identity Not on file Sexual Orientation Not on file Last Filed Vital Signs Vital Sign Reading Time Taken Comments Blood Pressure 114/72 04/08/2024 7:30 PM FLOOR COVERING INSTALLER Pulse 66 04/08/2024 7:30 PM FLOOR COVERING INSTALLER Temperature 36.9 C (98.4 F) 04/08/2024 6:52 PM FLOOR COVERING INSTALLER Respiratory Rate 18 04/08/2024 6:52 PM FLOOR COVERING INSTALLER Oxygen Saturation 97% 04/08/2024 7:30 PM FLOOR COVERING INSTALLER Inhaled Oxygen Concentration - - Weight 86.2 kg (190 lb) 04/08/2024 6:52 PM FLOOR COVERING INSTALLER Height 180.3 cm (5' 11 ) 04/08/2024 6:52 PM FLOOR COVERING INSTALLER Body Mass Index 26.5 04/08/2024 6:52 PM FLOOR COVERING INSTALLER Plan of Treatment Health Maintenance Due Date [...] WO CONTRAST ED 04/08/2024 1 1:30 PM FLOOR COVERING INSTALLER XR KUB ED 04/08/2024 9:02 PM FLOOR COVERING INSTALLER EGFR STAT 04/08/2024 7:26 PM FLOOR COVERING INSTALLER DIFFERENTIAL AUTO STAT 04/08/2024 7:2 6 PM FLOOR COVERING INSTALLER CRP (ACUTE PHASE) STAT 04/08/2024 7:2 6 PM FLOOR COVERING INSTALLER LIPASE STAT 04/08/2024 7:26 PM FLOOR COVERING INSTALLER COMPREHENSIVE METABOLIC PANEL STAT 04/08/2024 7:26 PM FLOOR COVERING INSTALLER CBC WITH AUTO DIFFERENTIAL STAT 04/08/2024 7:26 PM FLOOR COVERING INSTALLER from Last 3 Months Results * CT Head WO Contrast (04/08/2024 11:30 PM FLOOR COVERING INSTALLER) Anatomical Region Laterality Modality Head and Neck N/A Computed Tomogra phy 04/08/2024 11:3 4 PM FLOOR COVERING INSTALLER Narrative 04/08/2024 11:37 PM FLOOR COVERING INSTALLER EXAM DESCRIPTION: CT HEAD WO CONTRAST REASON [...] Jean-Claude Nath M.D. KH: SAMANTHA Report ID: [id number] Reading Location: [id number] Procedure Note Jean-Claude Nath MD - 04/08/2024 [...] Jean-Claude Nath M.D. KH: SAMANTHA Report ID: [id number] Reading Location: [id number] us Lyndon Munoz MD IMG CT PROCEDURES Final Res ult * XR Kub (Abd 1 View) (04/08/2024 9:02 PM FLOOR COVERING INSTALLER) Anatomical Region Laterality Modality Body, Abdomen N/A Computed Radiogr aphy 04/08/2024 9:16 PM FLOOR COVERING INSTALLER Narrative 04/08/2024 9:17 PM FLOOR COVERING INSTALLER EXAM DESCRIPTION: XR KUB REASON FOR STUDY: [...] Markos Sweet M.D. AR: LAURENCE Report ID: [id number] Reading Location: [id number] Procedure Note Markos Sweet MD - 04/08/2024 [...] Markos Sweet M.D. AR: LAURENCE Report ID: [id number] Reading Location: [place] [id number] us Lyndon Munoz MD IMG XR PROCEDURES Final Res ult * eGFR (04/08/2024 7:26 PM FLOOR COVERING INSTALLER) eGFR >90 >=60 mL/min/1. 73 m2 Comment: [...] last reviewed 2021. Blood 04/08/2024 7:26 PM FLOOR COVERING INSTALLER 04/08/2024 7:29 PM FLOOR COVERING INSTALLER Lyndon Munoz MD LAB BLOOD ORDERABLES Final Result [facility] ([place]) [address] [facility] [address] * (ABNORMAL) Differential, auto (04/08/2024 7:26 PM FLOOR COVERING INSTALLER) Neutrophil abs 7.4(H) 1.5 - 6.5 K/cumm [...] Neutrophil pct 74.0 % [facility] ([place]) Comment: Interpretive Data Percent cell count reference ranges are not reported, since discordance with absolute values may lead to misinterpretation of CBC data. Current Interpretive Data was last revised on 2017. Imm gran pct 0.2 % [facility] ([place]) Comment: Interpretive Data Percent cell count reference [...] 2017. Monocyte pct 6.3 % [facility] ([place]) Comment: Interpretive Data Percent cell count reference [...] revised on 2017. Blood 04/08/2024 7:26 PM FLOOR COVERING INSTALLER 04/08/2024 7:29 PM FLOOR COVERING INSTALLER Lyndon Munoz MD LAB BLOOD ORDERABLES Final Result Performing Organization Address City/[facility]/ZIP Co de Phone Number [facility] ([place]) 1 [facility] [place] [address] * (ABNORMAL) CBC with auto differential (04/08/2024 7:26 PM FLOOR COVERING INSTALLER) WBC 10.0(H) 3.8 - 9.9 K/cumm Hgb [...] [facility] ([place]) Blood 04/08/2024 7:26 PM FLOOR COVERING INSTALLER 04/08/2024 7:29 PM FLOOR COVERING INSTALLER us Lyndon Munoz MD LAB BLOOD ORDERABLES Final Result Performing Organization Address City/[facility]/ZIP Co de Phone Number [facility] ([place]) 1 [facility] [place] [address] * CRP (acute phase) (04/08/2024 7:26 PM FLOOR COVERING INSTALLER) [facility] CRP <3.0 <=10.0 mg/L Blood 04/08/2024 7:26 PM FLOOR COVERING INSTALLER 04/08/2024 7:29 PM FLOOR COVERING INSTALLER Lyndon Munoz MD LAB BLOOD ORDERABLES Final Result Performing Organization Address City/[facility]/ZIP Co de Phone Number [facility] ([place]) [address] [facility] [employer] [address] * Lipase (04/08/2024 7:26 PM FLOOR COVERING INSTALLER) [facility] Lipase 13 10 - 99 Units/L Blood 04/08/2024 7:26 PM FLOOR COVERING INSTALLER 04/08/2024 7:29 PM FLOOR COVERING INSTALLER Lyndon Munoz MD LAB BLOOD ORDERABLES Final Result Performing Organization Address [facility] de Phone Number [facility] ([place]) [address] [facility] [place] [employer] [address] * Comprehensive metabolic panel (04/08/2024 7:26 PM FLOOR COVERING INSTALLER) [facility] Sodium 138 135 - 145 mmol/L Potassium, pl 4.3 3.3 - 4.9 mmol/L [facility] ([place]) Chloride 101 97 - 110 mmol/L [facility] ([place] CO2 27 22 - 32 mmol/L [facility] ([place]) Anion gap 10 2 - 15 mmol/L [facility] ([place]) BUN 10 6 - 25 mg/dL [facility] ([place]) Creatinine 0.96 0.80 - 1.30 mg/dL [facility] ([place]) Glucose 97 70 - 199 mg/dL [facility] ([place]) Comment: Interpretive Data Fasting glucose [...] [facility] ([place]) Blood 04/08/2024 7:26 PM FLOOR COVERING INSTALLER 04/08/2024 7:29 PM FLOOR COVERING INSTALLER Lyndon Munoz MD LAB BLOOD ORDERABLES Final Result [facility] ([place]) 1 [facility] Department of Laboratories [place], [place] [id number] from Last 3 [place] [address] [facility] Care Teams Inpatient Pharmacist Relationship Specialty Start Date End Date No, Physician PCP - General 04/08/24
[2024-05-27 14:50] VITALS: BP 128/90; PULSE 100; RESP 14; TEMP 36.9; O2SAT 98
--- NOTE | 2024-05-27 16:36 | ED.NECK ---
HPI - Neck Pain/Injury General Chief Complaint: Neck Pain/Injury <Brittnee Villalta PA-C - Last Filed: 05/28/24 01:32> Stated Complaint: right sided neck pain, fingers numbness/tingling <Brittnee Villalta PA-C - Last Filed: 05/28/24 01:32> Time Seen by Provider: 05/27/24 16:36 <Brittnee Villalta PA-C - Last Filed: 05/28/24 01:32> Focused HPI: This is a 34 year old male that presents to the ER for neck pain. Reports his fingers are numb/tingling. This has been ongoing over the last week and a half. He has been taking Ibuprofen with little relief. No recent injuries. The pain is on the right side of his neck. GENERAL: Well-appearing, well-nourished, and in no acute distress. HEAD: Normocephalic, atraumatic. CHEST: Clear to auscultation. ?No respiratory distress. HEART: Regular rate and rhythm.? NEURO: ?Alert and oriented x3. Patient screened in triage and initial orders placed.? ?Additional care and disposition to be based upon?diagnostic testing and treatment. <Brittnee Villalta PA-C - Last Filed: 05/28/24 01:32> History of Present Illness HPI Narrative: I agree with the above HPI <Domingo Michael MD - Last Filed: 05/27/24 19:09> Related Data Allergies/Adverse Reactions: Allergies Allergy/AdvReac Type Severity Reaction Status Date / Time No Known Allergies Allergy Verified 05/27/24 16:43 <Brittnee Villalta PA-C - Last Filed: 05/28/24 01:32> Review of Systems Review of Systems: All systems reviewed & are unremarkable except as noted in HPI and below <Domingo Michael MD - Last Filed: 05/27/24 19:09> PMFSH Social History Social History: Social History (Updated 05/08/24 @ 07:01 by Nelli Knight MA) Smoking status: Former smoker Additional smoking assessment comments: Does not currently smoke Alcohol use details: Does not currently consume alcohol. 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 EYES: PERRLA/EOMI, conjunctivae clear. NOSE: Normal no drainage EARS:TMS clear with good light reflex. THROAT: Pharynx clear, no exudate. NECK: Supple. No adenopathy, no masses. RESPIRATORY: Airway patent, respirations nonlabored. Clear to auscultation bilaterally, no rales, rhonchi, wheezing. CARDIOVASCULAR: Regular rate and rhythm without murmurs rubs or gallops. ABDOMINAL: Soft, nontender, nondistended, normal bowel sounds MUSCULOSKELETAL: Right lateral neck tenderness into right trapezius NEURO: Alert. Cranial nerves II through XII intact. Good gait. Good coordination SKIN: Warm, dry. Normal Color <Domingo Michael MD - Last Filed: 05/27/24 19:09> Course Vital Signs Vital signs: Vital Signs Temperature 98.4 F 05/27/24 14:50 Pulse Rate 100 05/27/24 14:50 Respiratory Rate 14 05/27/24 14:50 Blood Pressure 128/90 05/27/24 14:50 Pulse Oximetry 98 05/27/24 14:50 Oxygen Delivery Room Air 05/27/24 14:50 Temperature 98.1 F 05/27/24 18:16 Pulse Rate 72 05/27/24 18:16 Respiratory Rate 16 05/27/24 18:16 Blood Pressure 132/78 05/27/24 18:16 Pulse Oximetry 99 05/27/24 18:16 Oxygen Delivery Room Air 05/27/24 14:50 <Brittnee Villalta PA-C - Last Filed: 05/28/24 01:32> Vital Signs Temperature 98.4 F 05/27/24 14:50 Pulse Rate 100 05/27/24 14:50 Respiratory Rate 14 05/27/24 14:50 Blood Pressure 128/90 05/27/24 14:50 Pulse Oximetry 98 05/27/24 14:50 Oxygen Delivery Room Air 05/27/24 14:50 Temperature 98.1 F 05/27/24 18:16 Pulse Rate 72 05/27/24 18:16 Respiratory Rate 16 05/27/24 18:16 Blood Pressure 132/78 05/27/24 18:16 Pulse Oximetry 99 05/27/24 18:16 Oxygen Delivery Room Air 05/27/24 14:50 <Domingo Michael MD - Last Filed: 05/27/24 19:09> MDM - Neck Pain/Injury MDM Narrative Medical decision making narrative: 34-year-old male presents to the emergency department for evaluation for right-sided neck pain. CT scan was negative for acute injury. Patient is having muscular spasm of right lateral neck into her right shoulder. Treating patient for muscle spasm. Patient was encouraged close follow-up with primary care physician. <Domingo Michael MD - Last Filed: 05/27/24 19:09> Differential Diagnosis Differential diagnosis: Likely disc disorder of cervical region, whiplash injury to neck, closed subluxation of cervical spine, torticollis and strain of neck muscle <Domingo Michael MD - Last Filed: 05/27/24 19:09> Imaging Data Radiologist's impression: Impressions Cervical Spine CT 05/27/24 17:30 Impression: Straightening and slight reversal of the normal curvature of the cervical spine, likely muscular in origin. No acute fracture. <Domingo Michael MD - Last Filed: 05/27/24 19:09> Critical Care Time Critical Care Time Critical Care Time: No <Brittnee Villalta PA-C - Last Filed: 05/28/24 01:32> Discharge Plan Discharge Clinical Impression: Strain of cervical portion of right trapezius muscle <Brittnee Villalta PA-C - Last Filed: 05/28/24 01:32> Patient Disposition: Home, Self-Care <Brittnee Villalta PA-C - Last Filed: 05/28/24 01:32> Condition: Stable <Brittnee Villalta PA-C - Last Filed: 05/28/24 01:32> Instructions: Antibiotic Form, Neck Pain (ED) <Brittnee Villalta PA-C - Last Filed: 05/28/24 01:32> Additional Instructions: Ibuprofen for pain control, Medrol Dosepak as directed. Flexeril for muscle spasm. Lucinda as needed for additional pain control. Have close follow-up with your primary care physician. If you have any worsening symptoms then please call or return to the emergency department. <Brittnee Villalta PA-C - Last Filed: 05/28/24 01:32> Patient Language: Luxembourger <Brittnee Villalta PA-C - Last Filed: 05/28/24 01:32> Prescriptions: New cyclobenzaprine 10 mg tablet 10 mg PO BID PRN (Reason: muscle spasm) Qty: 14 0RF hydrocodone-acetaminophen 5-325 mg tablet 1 tablet PO Q12H PRN (Reason: pain) Qty: 14 0RF methylprednisolone [Medrol (Alexis)] 4 mg tablets,dose pack See Rx Instructions .ROUTE .COMPLEX Qty: 21 0RF Rx Instructions: for 6 days No Action omeprazole 40 mg capsule,delayed release(DR/EC) 40 mg PO DAILY Qty: 30 1RF ondansetron 4 mg tablet,disintegrating 4 mg PO Q8H PRN (Reason: nausea and vomiting) Qty: 30 1RF <Brittnee Villalta PA-C - Last Filed: 05/28/24 01:32> Follow-up/Referrals: Helga Swenson APRN [Primary Care Provider] - <Brittnee Villalta PA-C - Last Filed: 05/28/24 01:32> Stand Alone Forms: Work/School Release IP <Brittnee Villalta PA-C - Last Filed: 05/28/24 01:32>
--- OUTSIDE RECORDS SUMMARY | 2024-05-27 17:02 | XMS_ITS | Clinical Summary ---
Author Organization [facility] Address [address] [place] [address] Phone Care Team Providers Care Machine Inspector Name Role Phone Provider, None Primary Care Provider Unavailabl e Allergies No known active allergies Medications neomycin-polymy lisbet-dexamethaso ne (MAXITROL) [id number] 1 Drop in left eye 4 times daily. 5 mL 12/13/2022 Active methylPREDNISol one (MEDROL DOSPACK) 4 MG Tablet Therapy Pack See product package insert for dosing schedule 21 Tablet 12/13/2022 Active Encounters Date Type Department Care Team Description 04/08/2024 Nurse Triage [facility] [address] [place] [address] Provider, None Dizziness from Last [...] Treatment Not on [place] [address] MEDICAID [employer] Care Teams Machine Inspector Relationship Specialty Start Date End Date Provider, None [place] PCP - General 12/13/22
--- OUTSIDE RECORDS SUMMARY | 2024-05-27 17:02 | XMS_ITS | Referral Summary ---
Author Organization [facility] Address [address] [place] [address] Care Team Providers Care Market Editor Name Role Phone No, Physician Primary Care Provider [phone] Encounters Date Type Department Care Team Description 04/08/2024 6:53 PM FISH SEINER - 04/09/2024 12:02 AM [facility] Emergency [facility] Emergency Department [address] [place] [address] Mariana Massey MD [place], Lyndon Rubin MD [...] on file Legal Sex Male 6:40 PM FISH SEINER Gender Identity Not on file Sexual Orientation Not on file Last Filed Vital Signs Vital Sign Reading Time Taken Comments Blood Pressure 114/72 04/08/2024 7:30 PM FISH SEINER Pulse 66 04/08/2024 7:30 PM FISH SEINER Temperature 36.9 C (98.4 F) 04/08/2024 6:52 PM FISH SEINER Respiratory Rate 18 04/08/2024 6:52 PM FISH SEINER Oxygen Saturation 97% 04/08/2024 7:30 PM FISH SEINER Inhaled Oxygen Concentration - - Weight 86.2 kg (190 lb) 04/08/2024 6:52 PM FISH SEINER Height 180.3 cm (5' 11 ) 04/08/2024 6:52 PM FISH SEINER Body Mass Index 26.5 04/08/2024 6:52 PM FISH SEINER Plan of Treatment Not on file Procedures Procedure Name Priority Date/Time Associated Diagnosis Comments CT HEAD WO CONTRAST ED 04/08/2024 1 1:30 PM FISH SEINER XR KUB ED 04/08/2024 9:02 PM FISH SEINER EGFR STAT 04/08/2024 7:26 PM FISH SEINER DIFFERENTIAL AUTO STAT 04/08/2024 7:2 6 PM FISH SEINER CRP (ACUTE PHASE) STAT 04/08/2024 7:2 6 PM FISH SEINER LIPASE STAT 04/08/2024 7:26 PM FISH SEINER COMPREHENSIVE METABOLIC PANEL STAT 04/08/2024 7:26 PM FISH SEINER CBC WITH AUTO DIFFERENTIAL STAT 04/08/2024 7:26 PM FISH SEINER from Last 3 Months Results * CT Head WO Contrast (04/08/2024 11:30 PM FISH SEINER) Anatomical Region Laterality Modality Head and Neck N/A Computed Tomogra phy 04/08/2024 11:3 4 PM FISH SEINER Narrative 04/08/2024 11:37 PM FISH SEINER EXAM DESCRIPTION: CT HEAD WO CONTRAST REASON [...] signed by Jean-Claude SINGH: SAMANTHA Report ID: [id number] Reading Location: [id number] Procedure Note Jean-Claude Nath MD - 04/08/2024 [...] signed by Jean-Claude SINGH: SAMANTHA Report ID: [id number] Reading Location: [id number] us Lyndon Munoz MD IMG CT PROCEDURES Final Res ult * XR Kub (Abd 1 View) (04/08/2024 9:02 PM FISH SEINER) Anatomical Region Laterality Modality Body, Abdomen N/A Computed Radiogr aphy 04/08/2024 9:16 PM FISH SEINER Narrative 04/08/2024 9:17 PM FISH SEINER EXAM DESCRIPTION: XR KUB REASON FOR STUDY: [...] Markos Sweet M.D. AR: LAURENCE Report ID: [id number] Reading Location: [id number] Procedure Note Markos Sweet MD - 04/08/2024 [...] Markos Sweet M.D. AR: AR Report ID: [id number] Reading Location: [id number] Lyndon Munoz MD IMG XR PROCEDURES Final Res ult * eGFR (04/08/2024 7:26 PM FISH SEINER) eGFR >90 >=60 mL/min/1. 73 m2 Comment: [...] last reviewed 2021. Blood 04/08/2024 7:26 PM FISH SEINER 04/08/2024 7:29 PM FISH SEINER Lyndon Munoz MD LAB BLOOD ORDERABLES Final Result [facility] Department of Laboratories [place], [place] [id number] * (ABNORMAL) Differential, auto (04/08/2024 7:26 PM FISH SEINER) Neutrophil abs 7.4(H) 1.5 - 6.5 K/cumm Imm gran abs 0.0 0.0 - 0.1 K/cumm [facility] ([place]) Lymphocyte abs 1.8 0.8 - 3.3 K/cumm [facility] ([place]) Monocyte abs 0.6 0.2 - 0.8 K/cumm [...] revised on 2017. Blood 04/08/2024 7:26 PM FISH SEINER 04/08/2024 7:29 PM FISH SEINER us Lyndon Munoz MD LAB BLOOD ORDERABLES Final Result [facility] ([place]) 1 [facility] Department [place] [address] * (ABNORMAL) CBC with auto differential (04/08/2024 7:26 PM FISH SEINER) WBC 10.0(H) 3.8 - 9.9 K/cumm Hgb [...] [facility] ([place]) Blood 04/08/2024 7:26 PM FISH SEINER 04/08/2024 7:29 PM FISH SEINER us Lyndon Munoz MD LAB BLOOD ORDERABLES Final Result [facility] ([place]) [address] [facility] [place] [address] * CRP (acute phase) (04/08/2024 7:26 PM FISH SEINER) CRP <3.0 <=10.0 mg/L Blood 04/08/2024 7:26 PM FISH SEINER 04/08/2024 7:29 PM FISH SEINER Lyndon Munoz MD LAB BLOOD ORDERABLES Final Result [facility] ([place]) 1 [facility] Department [place] [address] * Lipase (04/08/2024 7:26 PM FISH SEINER) Lipase 13 10 - 99 Units/L Blood 04/08/2024 7:26 PM FISH SEINER 04/08/2024 7:29 PM FISH SEINER Lyndon Munoz MD LAB BLOOD ORDERABLES Final Result [facility] ([place]) 1 [facility] Department [place] [address] * Comprehensive metabolic panel (04/08/2024 7:26 PM FISH SEINER) Sodium 138 135 - 145 mmol/L Potassium, pl 4.3 3.3 - 4.9 mmol/L [facility] ([place]) Chloride 101 97 - 110 mmol/L [facility] ([place]) CO2 27 22 - 32 mmol/L [facility] Anion gap 10 2 - 15 mmol/L [facility] ([place]) BUN 10 6 - 25 mg/dL [facility]) Creatinine 0.96 0.80 - 1.30 [...] [facility] ([place]) Blood 04/08/2024 7:26 PM FISH SEINER 04/08/2024 7:29 PM FISH SEINER us Lyndon Munoz MD LAB BLOOD ORDERABLES Final Result [facility] ([place]) 1 [facility] Department of Laboratories [place], [place] [id number] from Last 3 [place] [address] [facility] Care Teams Market Editor Relationship Specialty Start Date End Date No, Physician PCP - General 04/08/24
--- OUTSIDE RECORDS SUMMARY | 2024-05-27 17:02 | XMS_ITS | Clinical Summary ---
Author Organization [facility] Address [address] [place] [address] Care Team Providers Care Conduit Bender Name Role Phone No, Physician Primary Care Provider [phone] Allergies No known active allergies Medications meclizine [...] Department Care Team Description 04/08/2024 6:53 PM WARD ATTENDANT - 04/09/2024 12:02 AM [facility] Emergency [facility] Emergency Department [address] [place] [address] Mariana Massey MD [place]side, David W., MD [...] on file Legal Sex Male 6:40 PM WARD ATTENDANT Gender Identity Not on file Sexual Orientation Not on file Last Filed Vital Signs Vital Sign Reading Time Taken Comments Blood Pressure 114/72 04/08/2024 7:30 PM WARD ATTENDANT Pulse 66 04/08/2024 7:30 PM WARD ATTENDANT Temperature 36.9 C (98.4 F) 04/08/2024 6:52 PM WARD ATTENDANT Respiratory Rate 18 04/08/2024 6:52 PM WARD ATTENDANT Oxygen Saturation 97% 04/08/2024 7:30 PM WARD ATTENDANT Inhaled Oxygen Concentration - - Weight 86.2 kg (190 lb) 04/08/2024 6:52 PM WARD ATTENDANT Height 180.3 cm (5' 11 ) 04/08/2024 6:52 PM WARD ATTENDANT Body Mass Index 26.5 04/08/2024 6:52 PM WARD ATTENDANT Plan of Treatment Health Maintenance Due Date [...] WO CONTRAST ED 04/08/2024 1 1:30 PM WARD ATTENDANT XR KUB ED 04/08/2024 9:02 PM WARD ATTENDANT EGFR STAT 04/08/2024 7:26 PM WARD ATTENDANT DIFFERENTIAL AUTO STAT 04/08/2024 7:2 6 PM WARD ATTENDANT CRP (ACUTE PHASE) STAT 04/08/2024 7:2 6 PM WARD ATTENDANT LIPASE STAT 04/08/2024 7:26 PM WARD ATTENDANT COMPREHENSIVE METABOLIC PANEL STAT 04/08/2024 7:26 PM WARD ATTENDANT CBC WITH AUTO DIFFERENTIAL STAT 04/08/2024 7:26 PM WARD ATTENDANT from Last 3 Months Results * CT Head WO Contrast (04/08/2024 11:30 PM WARD ATTENDANT) Anatomical Region Laterality Modality Head and Neck N/A Computed Tomogra phy 04/08/2024 11:3 4 PM WARD ATTENDANT Narrative 04/08/2024 11:37 PM WARD ATTENDANT EXAM DESCRIPTION: CT HEAD WO CONTRAST REASON [...] 11:37 PM - Electronically signed by Jean-Claude Naht M.D. KH: SAMANTHA Report ID: [id number] Reading Location: [id number] Procedure Note Jean-Claude Nath MD - 04/08/2024 [...] Jean-Claude Nath M.D. KH: SAMANTHA Report ID: [id number] Reading Location: [id number] us Lyndon Munoz MD IMG CT PROCEDURES Final Res ult * XR Kub (Abd 1 View) (04/08/2024 9:02 PM WARD ATTENDANT) Anatomical Region Laterality Modality Body, Abdomen N/A Computed Radiogr aphy 04/08/2024 9:16 PM WARD ATTENDANT Narrative 04/08/2024 9:17 PM WARD ATTENDANT EXAM DESCRIPTION: XR KUB REASON FOR STUDY: [...] Markos Sweet M.D. AR: LAURENCE Report ID: [id number] Reading Location: [id number] Procedure Note Markos Sweet MD - 04/08/2024 [...] horizontal rotational dizziness and fine as long felxi is still. No Hx of Abdomen Surgery. TECHNIQUE: KUB COMPARISON: None FINDINGS: BOWEL: Nonobstructive gas pattern. OTHER SOFT TISSUES: Unremarkable. BONES: Unremarkable. IMPRESSION: No bowel obstruction or other acute abnormality identified. THIS IS AN ELECTRONICALLY VERIFIED FINAL REPORT 04/08/2024 9:17 PM - Electronically signed by Markos Sweet M.D. AR: LAURENCE Report ID: [id number] Reading Location: [place] [id number] us Lyndon Munoz MD IMG XR PROCEDURES Final Res ult * eGFR (04/08/2024 7:26 PM WARD ATTENDANT) eGFR >90 >=60 mL/min/1. 73 m2 Comment: [...] last reviewed 2021. Blood 04/08/2024 7:26 PM WARD ATTENDANT 04/08/2024 7:29 PM WARD ATTENDANT Lyndon Munoz MD LAB BLOOD ORDERABLES Final Result [facility] ([place]) 1 [facility] [place] [address] * (ABNORMAL) Differential, auto (04/08/2024 7:26 PM WARD ATTENDANT) Neutrophil abs 7.4(H) 1.5 - 6.5 K/cumm [...] Neutrophil pct 74.0 % [facility] ([place]) Comment: Interpretive Data Percent cell count reference ranges are not reported, since discordance with absolute values may lead to misinterpretation of CBC data. Current Interpretive Data was last revised on 2017. Imm gran pct 0.2 % [facility] ([place]) Comment: Interpretive Data Percent cell count reference [...] 2017. Monocyte pct 6.3 % [facility] ([place]) Comment: Interpretive Data Percent cell count reference [...] revised on 2017. Blood 04/08/2024 7:26 PM WARD ATTENDANT 04/08/2024 7:29 PM WARD ATTENDANT Lyndon Munoz MD LAB BLOOD ORDERABLES Final Result Performing Organization Address City/[facility]/ZIP Co de Phone Number [facility] ([place]) 1 [facility] [place] [address] * (ABNORMAL) CBC with auto differential (04/08/2024 7:26 PM WARD ATTENDANT) WBC 10.0(H) 3.8 - 9.9 K/cumm Hgb [...] [facility] ([place]) Blood 04/08/2024 7:26 PM WARD ATTENDANT 04/08/2024 7:29 PM WARD ATTENDANT us Lyndon Munoz MD LAB BLOOD ORDERABLES Final Result Performing Organization Address City/[facility]/ZIP Co de Phone Number [facility] ([place]) [address] [facility] [place] [address] * CRP (acute phase) (04/08/2024 7:26 PM WARD ATTENDANT) [facility] CRP <3.0 <=10.0 mg/L Blood 04/08/2024 7:26 PM WARD ATTENDANT 04/08/2024 7:29 PM WARD ATTENDANT Lyndon Munoz MD LAB BLOOD ORDERABLES Final Result Performing Organization Address City/[facility]/ZIP Co de Phone Number [facility] ([place] 1 [facility] [place] [address] * Lipase (04/08/2024 7:26 PM WARD ATTENDANT) [facility] Lipase 13 10 - 99 Units/L Blood 04/08/2024 7:26 PM WARD ATTENDANT 04/08/2024 7:29 PM WARD ATTENDANT Lyndon Munoz MD LAB BLOOD ORDERABLES Final Result Performing Organization Address [facility] de Phone Number [facility] ([place] 1 [facility] [place] [address] * Comprehensive metabolic panel (04/08/2024 7:26 PM WARD ATTENDANT) [facility] Sodium 138 135 - 145 mmol/L Potassium, pl 4.3 3.3 - 4.9 mmol/L [facility] ([place]) Chloride 101 97 - 110 mmol/L [facility] ([place]) CO2 27 22 - 32 mmol/L [facility] ([place] Anion gap 10 2 - 15 mmol/L [facility] ([place]) BUN 10 6 - 25 mg/dL [facility] ([place]) Creatinine 0.96 0.80 - 1.30 mg/dL [facility] ([place]) Glucose 97 70 - 199 mg/dL [facility] ([place]) Comment: Interpretive Data Fasting glucose [...] [facility] ([place]) Blood 04/08/2024 7:26 PM WARD ATTENDANT 04/08/2024 7:29 PM WARD ATTENDANT Lyndon Munoz MD LAB BLOOD ORDERABLES Final Result [facility] ([place]) 1 [facility] Department of Laboratories [place], [place] [id number] from Last 3 [place] [address] [facility] Care Teams Conduit Bender Relationship Specialty Start Date End Date No, Physician PCP - General 04/08/24
[2024-05-27] MEDS: ACETAMINOPHEN 500 MG TABLET 1000 MG PO (17:16)
[2024-05-27] MEDS: KETOROLAC 30 MG/ML VIAL (*BKC) IM (17:16)
[2024-05-27 18:16] VITALS: BP 132/78; PULSE 72; RESP 16; TEMP 36.7; O2SAT 99
== END 2024-05-27 18:17 | disposition home or self-care (01) ==
PROVIDERS: Emergency Provider Emergency Medicine; PCP Nurse Practitioner Adult Health
DX: S16.1XXA Strain of muscle, fascia and tendon at neck level, initial encounter (principal)
CPT/HCPCS: 72125; 96372; 99284; A9270; J1885

== ENCOUNTER 2024-08-15 08:56 | Outpatient (CLI) | payer OTHER, SELFPAY ==
--- OUTSIDE RECORDS SUMMARY | 2024-08-15 09:10 | XMS_ITS | Referral Summary ---
Author Organization [facility] Address [address] [place] [address] Care Team Providers Care Structural Architect Name Role Phone No, Physician Primary Care Provider [phone] Allergies No known active allergies Medications meclizine [...] on file Legal Sex Male 6:40 PM STUNNER Gender Identity Not on file Sexual Orientation Not on file Last Filed Vital Signs Vital Sign Reading Time Taken Comments Blood Pressure 114/72 04/08/2024 7:30 PM STUNNER Pulse 66 04/08/2024 7:30 PM STUNNER Temperature 36.9 C (98.4 F) 04/08/2024 6:52 PM STUNNER Respiratory Rate 18 04/08/2024 6:52 PM STUNNER Oxygen Saturation 97% 04/08/2024 7:30 PM STUNNER Inhaled Oxygen Concentration - - Weight 86.2 kg (190 lb) 04/08/2024 6:52 PM STUNNER Height 180.3 cm (5' 11 ) 04/08/2024 6:52 PM STUNNER Body Mass Index 26.5 04/08/2024 6:52 PM STUNNER Plan of Treatment Not on [place] [address] [facility] Care Teams Structural Architect Relationship Specialty Start Date End Date No, Physician PCP - General 04/08/24
--- OUTSIDE RECORDS SUMMARY | 2024-08-15 09:10 | XMS_ITS | Clinical Summary ---
Author Organization [facility] Address [address] [place] [address] Care Team Providers Care Lithoplate Maker Name Role Phone No, Physician Primary Care Provider [phone] Allergies No known active allergies Medications meclizine [...] on file Legal Sex Male 6:40 PM MARKETING CAMPAIGN ANALYST Gender Identity Not on file Sexual Orientation Not on file Last Filed Vital Signs Vital Sign Reading Time Taken Comments Blood Pressure 114/72 04/08/2024 7:30 PM MARKETING CAMPAIGN ANALYST Pulse 66 04/08/2024 7:30 PM MARKETING CAMPAIGN ANALYST Temperature 36.9 C (98.4 F) 04/08/2024 6:52 PM MARKETING CAMPAIGN ANALYST Respiratory Rate 18 04/08/2024 6:52 PM MARKETING CAMPAIGN ANALYST Oxygen Saturation 97% 04/08/2024 7:30 PM MARKETING CAMPAIGN ANALYST Inhaled Oxygen Concentration - - Weight 86.2 kg (190 lb) 04/08/2024 6:52 PM MARKETING CAMPAIGN ANALYST Height 180.3 cm (5' 11 ) 04/08/2024 6:52 PM MARKETING CAMPAIGN ANALYST Body Mass Index 26.5 04/08/2024 6:52 PM MARKETING CAMPAIGN ANALYST Plan of Treatment Health Maintenance Due Date Last Done Comments Depression Screening 1990 Hepatitis C Screening 1990 DTaP/Tdap/Td Vaccine (1 - Tdap) 2001 Varicella Vaccines (1 of 2 - 13+ 2-dose series) 2003 Hepatitis B Screening 2008 Regular Well Visit/Exam 18-64 2008 Influenza Vaccine (Season Ended) 2024 HPV Vaccines Aged Out No longer eligi ble based on patient's age to complete this topic Pneumococcal vaccine <65 Aged Out No longer eligible based on patient's age to [place] [address] [facility] Care Teams Lithoplate Maker Relationship Specialty Start Date End Date No, Physician PCP - General 04/08/24
--- OUTSIDE RECORDS SUMMARY | 2024-08-15 09:10 | XMS_ITS | Clinical Summary ---
Author Organization [facility] Address [address] [place] [address] Phone Care Team Providers Care Disc Pad Grinder Name Role Phone Provider, None Primary Care Provider Unavailabl e Allergies No known active allergies Medications neomycin-polymy lisbet-dexamethaso ne (MAXITROL) 3.5-47771-[address] 1 Drop in left eye 4 times daily. 5 mL 12/13/2022 Active methylPREDNISol one (MEDROL DOSPACK) 4 MG Tablet Therapy Pack See product package insert for dosing schedule 21 Tablet 12/13/2022 Active Social History Tobacco Use Types Packs/Day [...] Treatment [place] [address] MEDICAID [employer] Care Teams Disc Pad Grinder Relationship Specialty Start Date End Date Provider, None [place] PCP - General 12/13/22
--- NOTE | 2024-08-15 12:00 | NEURO_ITS ---
Impression: # History of right upper extremity acute weakness followed by gradual recovery but not complete and with residual pain. No history of trauma. # Normal Nerve Conduction Study. # No Carpal Tunnel Syndrome or ulnar neuropathy. # Normal needle/EMG exam with no myotonia, fibs or neurogenic changes. # Clinical correlation recommended; No evidence of atrophy to consider Parsonage-Amaral syndrome Syndrome or Brachial Plexopathy. Nerve Conduction Studies Anti Sensory Summary Table Stim Site NR Peak (ms) P-T Amp (µV) Site1 Site2 Delta-P (ms) Dist (cm) Jorge (m/s) Right Median Anti Sensory (2-3nd Digit) Wrist 3.0 86.7 Wrist 2-3nd Digit 3.0 14.0 47 Wrist 2.9 62.5 Wrist 2-3nd Digit 3.0 14.0 47 Right Radial Anti Sensory (Base 1st Digit) Wrist 2.3 26.5 Wrist Base 1st Digit 2.3 0.0 Right Ulnar Anti Sensory (5th Digit) Wrist 2.7 50.8 Wrist 5th Digit 2.7 14.0 52 Motor Summary Table Stim Site NR Onset (ms) O-P Amp (mV) Site1 Site2 Delta-0 (ms) Dist (cm) Jorge (m/s) Right Median Motor (Abd Poll Brev) Wrist 3.4 3.8 Elbow Wrist 4.6 29.0 63 Elbow 8.0 4.3 Right Ulnar Motor (Abd Dig Minimi) Wrist 2.7 5.1 A Elbow Wrist 5.3 31.0 58 A Elbow 8.0 5.5 B Elbow Wrist 3.8 22.0 58 B Elbow 6.5 3.9 F Wave Studies NR F-Lat (ms) L-R F-Lat (ms) Right Median (Mrkrs) (Abd Poll Brev) 27.34 Right Ulnar (Mrkrs) (Abd Dig Min) 28.74 EMG Side Muscle Nerve Root Ins Act Fibs Amp Dur Recrt Comment Right 1stDorInt Ulnar C8-T1 Nml Nml Nml Nml Nml Right Ext Indicis Radial (Post Int) C7-8 Nml Nml Nml Nml Nml Right Ext Digitorum Radial (Post Int) C7-8 Nml Nml Nml Nml Nml Right BrachioRad Radial C5-6 Nml Nml Nml Nml Nml Right PronatorTeres Median C6-7 Nml Nml Nml Nml Nml Right Abd Poll Brev Median C8-T1 Nml Nml Nml Nml Nml Right ABD Dig Min Ulnar C8-T1 Nml Nml Nml Nml Nml Right FlexPolLong Median (Ant Int) C7-8 Nml Nml Nml Nml Nml Right Abd Poll Long Radial (Post Int) C7-8 Nml Nml Nml Nml Nml MTDD
== END 2024-08-15 08:57 | disposition home or self-care (01) ==
PROVIDERS: PCP Nurse Practitioner Adult Health; Visit Provider Nurse Practitioner Adult Health
DX: R20.2 Paresthesia of skin (principal)
CPT/HCPCS: 95886; 95909

== ENCOUNTER 2025-01-30 10:25 | Outpatient (CLI) | payer OTHER, SELFPAY ==
--- OUTSIDE RECORDS SUMMARY | 2025-01-30 11:49 | XMS_ITS | Clinical Summary ---
Author Organization [facility] Address [address] [place] [address] Care Team Providers Care Auto Suspension And Steering Mechanic Name Role Phone No, Physician Primary Care Provider [phone] Allergies No known active allergies Medications meclizine [...] on file Legal Sex Male 6:40 PM COMMODITIES MANAGER Gender Identity Not on file Sexual Orientation Not on file Last Filed Vital Signs Vital Sign Reading Time Taken Comments Blood Pressure 114/72 04/08/2024 7:30 PM COMMODITIES MANAGER Pulse 66 04/08/2024 7:30 PM COMMODITIES MANAGER Temperature 36.9 C (98.4 F) 04/08/2024 6:52 PM COMMODITIES MANAGER Respiratory Rate 18 04/08/2024 6:52 PM COMMODITIES MANAGER Oxygen Saturation 97% 04/08/2024 7:30 PM COMMODITIES MANAGER Inhaled Oxygen Concentration - - Weight 86.2 kg (190 lb) 04/08/2024 6:52 PM COMMODITIES MANAGER Height 180.3 cm (5' 11) 04/08/2024 6:52 PM COMMODITIES MANAGER Body Mass Index 26.5 04/08/2024 6:52 PM COMMODITIES MANAGER Plan of Treatment Health Maintenance Due Date Last Done Comments Depression Screening 1990 Hepatitis C Screening 1990 DTaP/Tdap/Td Vaccine (1 - Tdap) 2001 Varicella Vaccines (1 of 2 - 13+ 2-dose series) 2003 Hepatitis B Screening 2008 Regular Well Visit/Exam 18-64 2008 HPV Vaccines (1 - 3-dose SCD M series) 2017 Influenza Vaccine (#1) 2024 Pneumococcal vaccine <65 Aged Out No longer eligible based on patient's age to complete this topic [place] [address] Care Teams Auto Suspension And Steering Mechanic Relationship Specialty Start Date End Date No, Physician PCP - General 04/08/24
--- OUTSIDE RECORDS SUMMARY | 2025-01-30 11:49 | XMS_ITS | Clinical Summary ---
Author Organization [facility] Address [address] [place] [address] Phone Care Team Providers Care Poultry Veterinarian Name Role Phone Provider, None Primary Care Provider Unavailabl e Allergies No known active allergies Medications neomycin-polymy lisbet-dexamethaso ne (MAXITROL) 3.5-31294-9.[address] 1 Drop in left eye [...] 6:41 PM CDT Height 180.3 cm (5' 11) 12/13/2022 6:4 1 PM CDT Body Mass Index 22.87 12/13/2022 6:41 PM CDT Plan of Treatment [place] [address] [employer]ICAID [employer] Care Teams Poultry Veterinarian Relationship Specialty Start Date End Date Provider, None [place] PCP - General 12/13/22
[2025-01-30 18:45] LABS: Hematocrit 46.8 % (42.0-52.0); Hemoglobin 15.4 g/dL (14.0-18.0); Mean Corpuscular HGB Conc 32.9 g/dl (32-36); Mean Corpuscular Hemoglobin 32.0 pg (26-34); Mean Corpuscular Volume 97.1 fl (80-100); Platelet Count Result 242 k/mm3 (150-375); Red Blood Count 4.82 M/mm3 (4.6-6.20); White Blood Count 14.9 K/mm3 (4.5-10.0)
[2025-01-30 18:56] LABS: Alanine Aminotransferase 30 U/L (6-50); Albumin Level 4.6 g/dL (3.5-5.1); Alkaline Phosphatase 67 U/L (38-126); Anion Gap 9 mmol/L (4-12); Aspartate Amino Transferase 64 U/L (17-59); Bilirubin,Total 0.5 mg/dL (0.2-1.3); Blood Urea Nitrogen 18 mg/dL (9-20); Calcium 9.3 mg/dL (8.4-10.2); Carbon Dioxide 29 mmol/L (22-30); Chloride 103 mmol/L (98-107); Cholesterol 181 mg/dL (0-200); Estimated Glomerular Filt Rate > 60; Glucose 79 mg/dL (65-110); HDL Direct 54 mg/dL; Potassium 4.4 mmol/L (3.4-5.0); Sodium 141 mmol/L (137-145); Total Protein 8.0 g/dL (6.3-8.2); Triglycerides 37 mg/dL (<150)
[2025-01-30 19:32] LABS: Thyroid Stimulating Hormone 0.314 uIU/mL (0.465-4.680)
== END 2025-01-30 10:26 | disposition home or self-care (01) ==
LOC: ANHBWCLAB 10:26
PROVIDERS: PCP Nurse Practitioner Adult Health; Visit Provider Nurse Practitioner Adult Health
DX: Z13.9 Encounter for screening, unspecified (principal)
CPT/HCPCS: 36415; 80053; 80061; 84443; 85027

== ENCOUNTER 2025-02-04 06:29 | Outpatient (CLI) | payer OTHER, SELFPAY ==
--- OUTSIDE RECORDS SUMMARY | 2025-02-04 06:31 | XMS_ITS | Clinical Summary ---
Author Organization [facility] Address [address] [place] [address] Care Team Providers Care Cable Hooker Name Role Phone No, Physician Primary Care Provider [phone] Allergies No known active allergies Medications meclizine [...] on file Legal Sex Male 6:40 PM CONCRETE FINISHER Gender Identity Not on file Sexual Orientation Not on file Last Filed Vital Signs Vital Sign Reading Time Taken Comments Blood Pressure 114/72 04/08/2024 7:30 PM CONCRETE FINISHER Pulse 66 04/08/2024 7:30 PM CONCRETE FINISHER Temperature 36.9 C (98.4 F) 04/08/2024 6:52 PM CONCRETE FINISHER Respiratory Rate 18 04/08/2024 6:52 PM CONCRETE FINISHER Oxygen Saturation 97% 04/08/2024 7:30 PM CONCRETE FINISHER Inhaled Oxygen Concentration - - Weight 86.2 kg (190 lb) 04/08/2024 6:52 PM CONCRETE FINISHER Height 180.3 cm (5' 11) 04/08/2024 6:52 PM CONCRETE FINISHER Body Mass Index 26.5 04/08/2024 6:52 PM CONCRETE FINISHER Plan of Treatment Health Maintenance Due Date [...] patient's age to complete this topic [facility] [place] [address] Care Teams Cable Hooker Relationship Specialty Start Date End Date No, Physician PCP - General 04/08/24
--- OUTSIDE RECORDS SUMMARY | 2025-02-04 06:31 | XMS_ITS | Clinical Summary ---
Author Organization [facility] Address [address] [place] [address] Phone Care Team Providers Care Pastor Name Role Phone Provider, None Primary Care Provider Unavailabl e Allergies No known active allergies Medications neomycin-polymy lisbet-dexamethaso ne (MAXITROL) 3.5-71897-6.[address] 1 Drop in left eye [...] [place] [address] [employer]ICAID [employer] Care Teams Pastor Relationship Specialty Start Date End Date Provider, None [place] PCP - General 12/13/22
[2025-02-04 20:14] LABS: Free T4 Free Thyroxine 0.86 ng/dL (0.78-2.19)
== END 2025-02-04 06:30 | disposition home or self-care (01) ==
LOC: ANHBWCLAB 06:30
PROVIDERS: PCP Nurse Practitioner Adult Health; Visit Provider Nurse Practitioner Adult Health
DX: R79.89 Other specified abnormal findings of blood chemistry (principal)
CPT/HCPCS: 36415; 84439; 86376

== ENCOUNTER 2025-03-20 15:43 | Outpatient (CLI) | payer OTHER, SELFPAY ==
[2025-03-20 19:27] LABS: Hematocrit 43.9 % (42.0-52.0); Hemoglobin 15.0 g/dL (14.0-18.0); Immature Granulocyte Percent A 0.4 % (0-0.5); Lymphocytes Absolute Auto 1.94 K/mm3 (0.9-3.2); Mean Corpuscular HGB Conc 34.2 g/dl (32-36); Mean Corpuscular Hemoglobin 32.0 pg (26-34); Mean Corpuscular Volume 93.6 fl (80-100); Nucleated Red Blood Cells Absolute Auto 0.000 K/mm3 (0.0-0.012); Nucleated Red Blood Cells Perc 0.0 % (0.0-0.2); Platelet Count Result 256 k/mm3 (150-375); Red Blood Count 4.69 M/mm3 (4.6-6.20); White Blood Count 8.3 K/mm3 (4.5-10.0)
[2025-03-20 19:37] LABS: Alanine Aminotransferase 23 U/L (6-50); Albumin Level 4.7 g/dL (3.5-5.1); Alkaline Phosphatase 71 U/L (38-126); Anion Gap 7 mmol/L (4-12); Aspartate Amino Transferase 45 U/L (17-59); Bilirubin,Total 0.4 mg/dL (0.2-1.3); Blood Urea Nitrogen 18 mg/dL (9-20); Calcium 9.4 mg/dL (8.4-10.2); Carbon Dioxide 30 mmol/L (22-30); Chloride 105 mmol/L (98-107); Estimated Glomerular Filt Rate > 60; Glucose 81 mg/dL (65-110); Potassium 4.1 mmol/L (3.4-5.0); Sodium 142 mmol/L (137-145); Total Protein 8.1 g/dL (6.3-8.2)
[2025-03-20 19:53] LABS: Free T4 Free Thyroxine 0.80 ng/dL (0.78-2.19)
[2025-03-20 20:12] LABS: Thyroid Stimulating Hormone 0.822 uIU/mL (0.465-4.680)
[2025-03-20 20:31] LABS: Vitamin B12 620.0 pg/mL (239-931)
== END 2025-03-20 15:44 | disposition home or self-care (01) ==
PROVIDERS: PCP Nurse Practitioner Adult Health; Visit Provider Nurse Practitioner Adult Health
DX: R79.89 Other specified abnormal findings of blood chemistry (principal); K21.9 Gastro-esophageal reflux disease without esophagitis; R42 Dizziness and giddiness
CPT/HCPCS: 36415; 80053; 82607; 84439; 84443; 85025